=== PATIENT | male | born 1960 | race Caucasian/White ===

== ENCOUNTER 2018-03-31 16:23 | Emergency (ER) | payer OTHER ==
[~2018-03-31] VITALS: Ht 165.1 cm; Wt 72.7 kg
[~2018-03-31 16:23] MED LIST: ADA60 PO; CEL100 PO; COUGH100 MG/5 M PO; FOSRENOL; LAC PO; LANTHANUM; MIN10 PO; NEP PO; PRO60 PO; REN800 PO; SENSIPAR
[2018-03-31 16:54] VITALS: BP 132/73; Ht 165.1 cm; Wt 72.7 kg
== END 2018-03-31 17:53 | disposition home or self-care (01) ==
LOC: ED 16:23
DX: H66.92 Otitis media, unspecified, left ear (principal); I12.0 Hypertensive chronic kidney disease with stage 5 chronic kidney disease or end stage renal disease; N18.6 End stage renal disease; Z99.2 Dependence on renal dialysis